=== PATIENT | female | born 1965 | race Caucasian/White ===

== ENCOUNTER 2017-02-14 20:20 | Emergency (ER) | payer BC ==
[2017-02-14] MEDS ORDERED: Adacel (T-DAP) 0.5 ML VIAL ONE (20:49)
[2017-02-14] MEDS ORDERED: Amoxicillin/Potassium Clav 875 MG TAB ONE (20:58)
== END 2017-02-14 21:05 | disposition home or self-care (01) ==
LOC: BURERS 20:20
DX: S60.452A Superficial foreign body of right middle finger, initial encounter (principal); W45.8XXA Other foreign body or object entering through skin, initial encounter
CPT/HCPCS: 10120; 90471; 90715